=== PATIENT | female | born 1970 | race Caucasian/White ===

== ENCOUNTER → 2017-01-15 | Outpatient (CLI) | payer BC | LOC: FIMAGING 08:36 | PROVIDERS: ATTEND Podiatrist Foot & Ankle Surgery | DX: M20.11 Hallux valgus (acquired), right foot (principal); M77.31 Calcaneal spur, right foot ==

== ENCOUNTER → 2017-02-11 | Outpatient (CLI) | payer BC | LOC: BMCIMAGING 08:50 | PROVIDERS: ATTEND Podiatrist Foot & Ankle Surgery | DX: Z09 Encounter for follow-up examination after completed treatment for conditions other than malignant neoplasm (principal); M77.31 Calcaneal spur, right foot ==

== ENCOUNTER → 2017-03-18 | Outpatient (CLI) | payer BC | LOC: BMCIMAGING 12:59 | PROVIDERS: ATTEND Podiatrist Foot & Ankle Surgery | DX: Z98.1 Arthrodesis status (principal); Z98.890 Other specified postprocedural states; M85.80 Other specified disorders of bone density and structure, unspecified site ==